=== PATIENT | male | born 1990 | race Caucasian/White ===

== ENCOUNTER 2022-10-21 18:48 | Emergency (ER) | payer OTHER ==
[~2022-10-21] VITALS: Ht 177.8 cm; Wt 87.2 kg
[2022-10-21] MEDS ORDERED: MUCI1TAB16 PO (21:23)
[2022-10-21] MEDS ORDERED: BENZ200C70 PO (21:23)
[2022-10-21 21:36] VITALS: BP 133/81
== END 2022-10-21 21:31 | disposition home or self-care (01) ==
LOC: M ED 18:48
DX: J10.1 Influenza due to other identified influenza virus with other respiratory manifestations (principal); F17.200 Nicotine dependence, unspecified, uncomplicated; Z88.1 Allergy status to other antibiotic agents